=== PATIENT | male | born 1995 | race Two or more races ===

== ENCOUNTER 2023-02-23 19:22 | Emergency (ER) | payer MEDICAID ==
[~2023-02-23] VITALS: Ht 154.9 cm; Wt 81.6 kg
[2023-02-23 21:05] VITALS: BP 132/84; TEMP 98.1; O2SAT 98
[2023-02-23] MEDS ORDERED: FAMOTIDINE (20 MG) 20 MG TABLET ONE (21:14)
[2023-02-23] MEDS ORDERED: IBUPROFEN 600 MG TABLET ONE (21:14)
[2023-02-23] MEDS ORDERED: FAMOTIDINE (20 MG) 20 MG TABLET PO ONE (21:30)
[2023-02-23] MEDS ORDERED: IBUPROFEN 600 MG TABLET PO ONE (21:30)
[2023-02-23] MEDS ORDERED: CIPR500T5 PO (21:33)
[2023-02-23] MEDS ORDERED: DICY10CA37 PO (21:33)
== END 2023-02-23 21:50 | disposition home or self-care (01) ==
LOC: ER 20:24
DX: K52.9 Noninfective gastroenteritis and colitis, unspecified (principal)